=== PATIENT | male | born 1995 | race Caucasian/White ===

== ENCOUNTER 2024-07-12 11:56 | Emergency (ER) | payer MEDICAID, OTHER ==
[~2024-07-12] VITALS: Ht 172.7 cm; Wt 68.0 kg
[2024-07-12 11:58] VITALS: BP 150/100; PULSE 118; RESP 18; TEMP 98; O2SAT 96
[2024-07-12] MEDS: ACETAMINOPHEN 325MG TABLET PO ONE (12:29)
[2024-07-12] MEDS ORDERED: AMOX1TAB16 MT (12:53)
[2024-07-12] MEDS ORDERED: IBUP-2029 MT (12:54)
== END 2024-07-12 13:40 | disposition home or self-care (01) ==
LOC: ER 11:56
DX: S02.40CA Maxillary fracture, right side, initial encounter for closed fracture (principal); X58.XXXA Exposure to other specified factors, initial encounter; Y93.89 Activity, other specified; Y92.89 Other specified places as the place of occurrence of the external cause; Y99.8 Other external cause status
CPT/HCPCS: 70486; 99284

== ENCOUNTER 2024-07-12 14:25 | Emergency (ER) | payer OTHER ==
[~2024-07-12] VITALS: Ht 167.6 cm; Wt 63.0 kg
[~2024-07-12 14:25] MED LIST: AMOX1TAB16 MT; IBUP-2029 MT
[2024-07-12 14:42] VITALS: BP 130/93; O2SAT 100
[2024-07-12] MEDS: ACETAMINOPHEN 325MG TABLET PO ONE (17:06)
[2024-07-12 17:08] VITALS: PULSE 95; RESP 16; TEMP 36.89184; O2SAT 100
== END 2024-07-12 17:09 | disposition home or self-care (01) ==
LOC: ER 14:25
DX: M79.671 Pain in right foot (principal); M79.672 Pain in left foot
CPT/HCPCS: 99282